=== PATIENT | male | born 1995 | race Caucasian/White ===

== ENCOUNTER 2018-06-27 18:52 | Emergency (ER) | payer BC ==
--- NOTE | 2018-06-27 19:24 | ER Report ---
History and Physical Time Seen By MD: 19:23 Hx. of Stated Complaint: Pt. has had a fever for 2 days. Has not been seen anywhere until now. Thinks he may have meningitis. T max at home 103.5, here now 101.7. Reports lack of appetite, dizzy, and headache HPI/ROS CHIEF COMPLAINT: Fevers HISTORY OF PRESENT ILLNESS: This is a 22-year-old male. He has been sick for a couple of days now. He has headache, dizziness as well as the fevers. Loss of appetite with some nausea. Sore throat. Mild cough. Temperature at home was 1 03.5. Took some TheraFlu and ibuprofen about 5:00 this evening. Temperature has come down. No shortness of breath. No chest pain. Mild nausea. Allergies: Coded Allergies: No Known Drug Allergies (Unverified , 06/27/18) Home Meds Active Scripts Oseltamivir Phosphate (TAMIFLU) 75 Mg Cap, 75 MG PO BID, #10 CAP 0 Refills Prov:BEAU CORTEZ MD 06/27/18 Reviewed Nurses Notes: Yes Constitutional Vital Sign - Last 24 Hours 06/27/18 06/27/18 06/27/18 06/27/18 18:59 19:00 19:02 19:07 Temp 101.7 Pulse 93 93 91 Resp 16 B/P (MAP) 146/84 (104) 146/84 Pulse Ox 92 92 92 O2 Delivery Room Air 06/27/18 06/27/18 06/27/18 06/27/18 19:12 19:17 19:22 19:27 Pulse 105 92 88 86 Pulse Ox 92 91 91 91 06/27/18 06/27/18 06/27/18 06/27/18 19:30 19:32 19:37 19:42 Pulse 91 89 85 B/P (MAP) 110/58 (75) Pulse Ox 92 91 91 06/27/18 06/27/18 06/27/18 06/27/18 19:47 19:52 19:57 20:00 Pulse 99 95 88 B/P (MAP) 123/70 (87) Pulse Ox 92 91 91 06/27/18 06/27/18 06/27/18 06/27/18 20:02 20:07 20:12 20:17 Pulse 78 79 82 93 Pulse Ox 92 91 92 91 06/27/18 06/27/18 06/27/18 06/27/18 20:22 20:27 20:30 20:42 Pulse 87 79 78 B/P (MAP) 113/66 (82) Pulse Ox 91 91 91 06/27/18 06/27/18 06/27/18 06/27/18 20:57 21:00 21:12 21:17 Pulse 85 ? B/P (MAP) 122/67 (85) Pulse Ox 92 Intake and Output 06/27/18 06/27/18 06/28/18 15:00 23:00 07:00 Intake Total 1000 ml Balance 1000 ml Physical Exam General Appearance: The patient is alert. No acute distress. Eyes: Pupils are equal, round. No pallor, injection or icterus. ENT: Mucous membranes are moist. Normal oral mucosa. Erythema in the posterior oropharynx, no hypertrophy or exudates. Mild submandibular lymphadenopathy, but non-tender. Nasal mucosa with some erythema. Neck: Supple and non tender. Respiratory: Lungs are clear to auscultation. Cardiovascular: Regular rate and rhythm. No murmurs, gallops or rubs. Normal capillary refill. Gastrointestinal: Abdomen is soft and non tender. Nondistended. Normal active bowel sounds. No costovertebral angle tenderness with percussion. No splenomegaly. Neurological: Alert and oriented x3. No focal neurologic deficits. Negative Kernig and Brudzinsky's signs. Skin: Warm and dry. Musculoskeletal: Extremities are nontender. No tenderness in palpation of the ce rvical, thoracic and lumbar spine. DIFFERENTIAL DIAGNOSIS: After history and physical exam, differential diagnosis was considered for adult fever including but not limited to viral syndromes including influenza, mono, strep. Negative for meningeal signs. Medical Decision Making Data Points Result Diagram: 06/27/18191506/27/181915 Laboratory Hematology Test 06/27/18 19:16 Red Blood Count 6.04 M/uL (4.00-5.60) Mean Corpuscular Volume 85.4 fL (80.0-96.0) Mean Corpuscular Hemoglobin 28.9 pg (26.0-33.0) Mean Corpuscular Hemoglobin Concent 33.9 g/dL (32.0-36.0) Red Cell Distribution Width 13.9 % (11.5-14.5) Mean Platelet Volume 7.6 fL (7.2-11.1) Neutrophils (%) (Auto) 70.1 % (39.4-72.5) Lymphocytes (%) (Auto) 10.4 % (17.6-49.6) Monocytes (%) (Auto) 19.0 % (4.1-12.4) Eosinophils (%) (Auto) 0.1 % (0.4-6.7) Basophils (%) (Auto) 0.4 % (0.3-1.4) Nucleated RBC Relative Count (auto) 0.3 /100WBC Neutrophils # (Auto) 5.5 K/uL (2.0-7.4) Lymphocytes # (Auto) 0.8 K/uL (1.3-3.6) Monocytes # (Auto) 1.5 K/uL (0.3-1.0) Eosinophils # (Auto) 0.0 K/uL (0.0-0.5) Basophils # (Auto) 0.0 K/uL (0.0-0.1) Nucleated RBC Absolute Count (auto) 0.02 K/uL Erythrocyte Sedimentation Rate 5 mm/HOUR (0-15) Sodium Level 138 mmol/L (137-145) Potassium Level 3.8 mmol/L (3.5-5.0) Chloride Level 105 mmol/L (98-107) Carbon Dioxide Level 23 mmol/L (22-30) Blood Urea Nitrogen 8 mg/dl (9-21) Creatinine 1.20 mg/dl (0.66-1.25) Glomerular Filtration Rate Calc > 60.0 Random Glucose 129 mg/dl (75-110) Calcium Level 8.8 mg/dl (8.4-10.2) Total Bilirubin 0.7 mg/dl (0.2-1.3) Aspartate Amino Transf (AST/SGOT) 25 U/L (0-35) Alanine Aminotransferase (ALT/SGPT) 40 U/L (0-56) Alkaline Phosphatase 65 U/L (0-126) Total Protein 7.1 g/dl (6.3-8.2) Albumin 4.4 g/dl (3.5-5.0) Monoscreen Negative (NEGATIVE) Influenza Virus Type A (PCR) Positive (NEGATIVE) Influenza Virus Type B (PCR) Negative (NEGATIVE) Group A Streptococcus (PCR) Negative (NEGATIVE) Chemistry Test 06/27/18 19:16 White Blood Count 7.9 k/uL (4.5-11.0) Red Blood Count 6.04 M/uL (4.00-5.60) Hemoglobin 17.5 g/dL (14.0-18.0) Hematocrit 51.5 % (42.0-52.0) Mean Corpuscular Volume 85.4 fL (80.0-96.0) Mean Corpuscular Hemoglobin 28.9 pg (26.0-33.0) Mean Corpuscular Hemoglobin Concent 33.9 g/dL (32.0-36.0) Red Cell Distribution Width 13.9 % (11.5-14.5) Platelet Count 224 K/uL (150-450) Mean Platelet Volume 7.6 fL (7.2-11.1) Neutrophils (%) (Auto) 70.1 % (39.4-72.5) Lymphocytes (%) (Auto) 10.4 % (17.6-49.6) Monocytes (%) (Auto) 19.0 % (4.1-12.4) Eosinophils (%) (Auto) 0.1 % (0.4-6.7) Basophils (%) (Auto) 0.4 % (0.3-1.4) Nucleated RBC Relative Count (auto) 0.3 /100WBC Neutrophils # (Auto) 5.5 K/uL (2.0-7.4) Lymphocytes # (Auto) 0.8 K/uL (1.3-3.6) Monocytes # (Auto) 1.5 K/uL (0.3-1.0) Eosinophils # (Auto) 0.0 K/uL (0.0-0.5) Basophils # (Auto) 0.0 K/uL (0.0-0.1) Nucleated RBC Absolute Count (auto) 0.02 K/uL Erythrocyte Sedimentation Rate 5 mm/HOUR (0-15) Glomerular Filtration Rate Calc > 60.0 Calcium Level 8.8 mg/dl (8.4-10.2) Total Bilirubin 0.7 mg/dl (0.2-1.3) Aspartate Amino Transf (AST/SGOT) 25 U/L (0-35) Alanine Aminotransferase (ALT/SGPT) 40 U/L (0-56) Alkaline Phosphatase 65 U/L (0-126) Total Protein 7.1 g/dl (6.3-8.2) Albumin 4.4 g/dl (3.5-5.0) Monoscreen Negative (NEGATIVE) Influenza Virus Type A (PCR) Positive (NEGATIVE) Influenza Virus Type B (PCR) Negative (NEGATIVE) Group A Streptococcus (PCR) Negative (NEGATIVE) ED Course/Re-evaluation Clinical Indication for ER IV: Hydration, IV Access ED Course Influenza positive. The rest of labs are unremarkable. He is feeling better with Toradol and IV fluids. Continue with conservative management. No signs of menin gitis. Decision to Disposition Date: Jun 27, 2018 Decision to Disposition Time: 21:06 Depart Departure Latest Vital Signs Vital Signs Date Time Temp Pulse Resp B/P (MAP) Pulse Ox O2 Delivery O2 Flow Rate FiO2 06/27/18 21:17 ??? 06/27/18 21:00 122/67 (85) 06/27/18 20:57 92 06/27/18 19:00 101.7 16 Room Air Impression: Primary Impression: Influenza A Condition: Improved Disposition: HOME OR SELF-CARE New Scripts Oseltamivir Phosphate (TAMIFLU) 75 Mg Cap 75 MG PO BID, #10 CAP 0 Refills Prov: BEAU CORTEZ MD 06/27/18 Patient Instructions: Influenza (ED) Additional Instructions: Rest and increase fluid intake. Take Tamiflu 75mg twice a day for 5 days. Keep taking Ibuprofen and Tylenol as needed for fever and for pain. BEAU CORTEZ MD Jun 27, 2018 19:24
[2018-06-27 20:16] LABS: PLATELET COUNT, AUTOMATED 224 K/uL (150-450)
[2018-06-27] MEDS ORDERED: NS(*) 0.9% 1000 ML BAG 1,000 ML IV ONE (20:30)
[2018-06-27] MEDS ORDERED: KETOROLAC 15 MG/ML VIAL IVP ONE (20:30)
[2018-06-27 21:00] VITALS: BP 122/67
[2018-06-27] MEDS ORDERED: OSE75 PO (21:09)
[2018-06-27] MEDS ORDERED: OSELTAMIVIR PHOS 75 MG CAP PO ONE (21:10)
== END 2018-06-27 21:19 | disposition home or self-care (01) ==
LOC: ER 19:24
DX: J09.X2 Influenza due to identified novel influenza A virus with other respiratory manifestations (principal)
CPT/HCPCS: 85025; 85651; 86308; 87502; 87653; 96361; 96374; 99283; J1885; J7030; 82040; 82247; 82310; 82374; 82435; 82565; 82947; 84075; 84132; 84155; 84295; 84450; 84460; 84520